=== PATIENT | male | born 1945 | race American Indian/Alaskan Native ===

== ENCOUNTER 2016-04-02 12:55 | Outpatient (CLI) | payer MEDICARE ==
[2016-04-02 14:57] LABS: Blood Urea Nitrogen 19 mg/dL (9-20)
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
== END 2016-04-02 12:56 | disposition home or self-care (01) ==
LOC: CT 12:55
PROVIDERS: ATTEND Internal Medicine
DX: J93.9 Pneumothorax, unspecified (principal); J43.2 Centrilobular emphysema; J98.11 Atelectasis
CPT/HCPCS: 36415; 71270; 82565; 84520; Q9967

== ENCOUNTER 2016-05-02 12:59 | Outpatient (CLI) | payer MEDICARE ==
--- NOTE | 2016-05-02 15:02 | XRay Report ---
Right hip 2 views: History: Pain right hip. Findings: There is mild arthritic changes noted in the superior lateral aspect of the joint. No fracture dislocation or soft tissue calcification. Cystic area in the subarticular region of the acetabulum adjacent to the ischium is probably related to degenerative changes. Impression: Degenerative changes right hip.
--- NOTE | 2016-05-02 15:03 | XRay Report ---
AP and lateral of the thoracic spine. Findings: The vertebral body heights are well-maintained. Mild narrowing of the disc spaces is seen in the mid thoracic spine, most pronounced at T9-10. Alignment is normal. The pedicles are intact. Bony mineralization is normal. Impression: Mild degenerative disc disease but no other significant findings.
== END 2016-05-02 13:00 | disposition home or self-care (01) ==
LOC: XRAY 12:59
PROVIDERS: ATTEND Physical Medicine & Rehabilitation
DX: M51.14 Intervertebral disc disorders with radiculopathy, thoracic region (principal)
CPT/HCPCS: 72072; 72110